=== PATIENT | female | born 2005 | race Caucasian/White ===

== ENCOUNTER 2024-12-11 15:08 | Emergency (ER) | payer OTHER, SELFPAY ==
--- NOTE | ~2024-12-11 | XR_ITS ---
XR hip RT min 2V 12/11/2024 15:37 INDICATION: Right hip injury PROCEDURE: 2 views right hip COMPARISON: No prior studies for comparison. FINDINGS: Fracture, dislocation or subluxation is not identified. The soft tissues appear within norm al limits. No foreign bodies are identified. IMPRESSION: 1: NO ACUTE BONE OR JOINT ABNORMALITY IDENTIFIED. Reviewed, dictated and finalized at location A.
--- NOTE | ~2024-12-11 | XR_ITS ---
XR forearm RT 2V 12/11/2024 15:37 INDICATION: Right arm pain PROCEDURE: 2 views right forearm COMPARISON: No prior studies for comparison. FINDINGS: Fracture, dislocation or subluxation is not identified. The soft tissues appear within norm al limits. No foreign bodies are identified. IMPRESSION: 1: NO ACUTE BONE OR JOINT ABNORMALITY IDENTIFIED. Reviewed, dictated and finalized at location A.
--- NOTE | ~2024-12-11 | XR_ITS ---
XR humerus RT 12/11/2024 15:37 INDICATION: Right arm pain after injury PROCEDURE: 2 views right humerus COMPARISON: No prior studies for comparison. FINDINGS: Fracture, dislocation or subluxation is not identified. The soft tissues appear within norm al limits. No foreign bodies are identified. IMPRESSION: 1: NO ACUTE BONE OR JOINT ABNORMALITY IDENTIFIED. Reviewed, dictated and finalized at location A.
--- NOTE | ~2024-12-11 | XR_ITS ---
XR forearm LT 2V 12/11/2024 15:37 INDICATION: Left arm pain PROCEDURE: 2 views left forearm COMPARISON: No prior studies for comparison. FINDINGS: Fracture, dislocation or subluxation is not identified. The soft tissues appear within norm al limits. No foreign bodies are identified. IMPRESSION: 1: NO ACUTE BONE OR JOINT ABNORMALITY IDENTIFIED. Reviewed, dictated and finalized at location A.
[2024-12-11 15:12] VITALS: BP 148/104; PULSE 85; RESP 18; TEMP 36.3; O2SAT 99
--- NOTE | 2024-12-11 15:20 | ED.ANIMALBIT ---
HPI - Animal Bite General Chief Complaint: Animal Bite <Priscilla Jarrell APRN - Last Filed: 12/11/24 19:04> Stated Complaint: Dog bite while at work <Priscilla Jarrell APRN - Last Filed: 12/11/24 19:04> Time Seen by Provider: 12/11/24 15:15 <Priscilla Jarrell BLOW MOLDING MACHINE TENDER - Last Filed: 12/11/24 19:04> Focused HPI: Patient is a 19-year-old female who presents to the ER following a dog bite by a pit bull. She reports she was at work and carrying blankets in for the dog when he attacked her. Patient endorses dog bites to her left forearm, right forearm, right upper arm, and right hip. She is unsure when she last had her tetanus shot so she is in agreement to get it today. Patient reports the dog is up-to-date on his rabies vaccine, but was not vaccinated for anything else. Patient endorses significant pain, swelling and bruising to the different areas she was bit. She reports she has a history of mitral valve prolapse and mitral valve dysfunction. GENERAL: Well-appearing, well-nourished, and in no acute distress. HEAD: Normocephalic, atraumatic. CHEST: Clear to auscultation. ?No respiratory distress. HEART: Regular rate and rhythm.? NEURO: ?Alert and oriented x3. Patient screened in triage and initial orders placed.? ?Additional care and disposition to be based upon?diagnostic testing and treatment. <Priscilla Jarrell APRN - Last Filed: 12/11/24 19:04> History of Present Illness HPI narrative: agree with MSE above, remainder of note separate by myself (albaro) <Channing Isidro III, DO - Last Filed: 12/15/24 15:30> Related Data Allergies/Adverse Reactions: Allergies Allergy/AdvReac Type Severity Reaction Status Date / Time No Known Allergies Allergy Verified 12/11/24 16:00 <Priscilla Jarrell APRN - Last Filed: 12/11/24 19:04> Course Vital Signs Vital signs: Vital Signs Temperature 97.4 F L 12/11/24 15:12 Pulse Rate 85 12/11/24 15:12 Respiratory Rate 18 12/11/24 15:12 Blood Pressure 148/104 H 12/11/24 15:12 Pulse Oximetry 99 12/11/24 15:12 Oxygen Delivery Room Air 12/11/24 15:12 Temperature 97.4 F L 12/11/24 15:12 Pulse Rate 85 12/11/24 15:12 Respiratory Rate 18 12/11/24 15:12 Blood Pressure 148/104 H 12/11/24 15:12 Pulse Oximetry 99 12/11/24 15:12 Oxygen Delivery Room Air 12/11/24 15:12 <Priscilla Jarrell, BLOW MOLDING MACHINE TENDER - Last Filed: 12/11/24 19:04> Vital Signs Temperature 97.4 F L 12/11/24 15:12 Pulse Rate 85 12/11/24 15:12 Respiratory Rate 18 12/11/24 15:12 Blood Pressure 148/104 H 12/11/24 15:12 Pulse Oximetry 99 12/11/24 15:12 Oxygen Delivery Room Air 12/11/24 15:12 Temperature 97.4 F L 12/11/24 15:12 Pulse Rate 85 12/11/24 15:12 Respiratory Rate 18 12/11/24 15:12 Blood Pressure 148/104 H 12/11/24 15:12 Pulse Oximetry 99 12/11/24 15:12 Oxygen Delivery Room Air 12/11/24 15:12 <Channing Isidro III, DO - Last Filed: 12/15/24 15:30> Discharge Plan Discharge Clinical Impression: Dog bite <Priscilla Jarrell BLOW MOLDING MACHINE TENDER - Last Filed: 12/11/24 19:04> Patient Disposition: Home <Priscilla Jarrell BLOW MOLDING MACHINE TENDER - Last Filed: 12/11/24 19:04> Condition: Stable <Priscilla Jarrell BLOW MOLDING MACHINE TENDER - Last Filed: 12/11/24 19:04> Instructions: Antibiotic Form, Animal Bite (ED) <Priscilla Jarrell APRN - Last Filed: 12/11/24 19:04> Patient Language: Czech <Priscilla Jarrell BLOW MOLDING MACHINE TENDER - Last Filed: 12/11/24 19:04> Prescriptions: New amoxicillin-pot clavulanate 875-125 mg tablet 1 tablet PO Q12H Qty: 20 0RF <Priscilla Jarrell APRN - Last Filed: 12/11/24 19:04> Follow-up/Referrals: PHYSICIAN NOT ON STAFF,NONSTAFF [Non-Staff] - <Priscilla Jarrell APRN - Last Filed: 12/11/24 19:04>
[2024-12-11] MEDS: KETOROLAC (*BKC) 60 MG/2 ML VIAL IM (15:50)
[2024-12-11] MEDS: TETANUS,DIPHTHERIA,AC PERTUSSIS ADULT (0.5 ML) BOOSTRIX IM (15:51)
--- NOTE | 2024-12-11 16:03 | ED.ANIMALBIT ---
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 Dog's shots utd. suffered bite to forearm and hip and scratches to upper arm. unsure of last tetanus. Related Data Allergies Allergy/AdvReac Type Severity Reaction Status Date / Time No Known Allergies Allergy Verified 12/11/24 16:00 Review of Systems Review of Systems: All systems reviewed & are unremarkable except as noted in HPI and below Exam Const: General: healthy appearing and no acute distress Nutritional Appearance: well nourished Orientation/consciousness: patient oriented x3 Limitations: no limitations Resp: Effort & Inspection: normal respiratory effort Auscultation: clear to auscultation bilaterally Cardio: Rate: regular rate Rhythm: regular rhythm GI: GI Palp: Yes Soft to palpation and No Tenderness to palpation present (GI) Skin: Wounds: wounds noted Neuro: General: patient oriented x3, moves all extremities and no focal motor deficits Extrem: Other: dog bite puncture wounds to right forearm and right hip with surrounding bruises, scratches to right humerus Course Vital Signs Vital signs: Vital Signs Temperature 97.4 F L 12/11/24 15:12 Pulse Rate 85 12/11/24 15:12 Respiratory Rate 18 12/11/24 15:12 Blood Pressure 148/104 H 12/11/24 15:12 Pulse Oximetry 99 12/11/24 15:12 Oxygen Delivery Room Air 12/11/24 15:12 Temperature 97.4 F L 12/11/24 15:12 Pulse Rate 85 12/11/24 15:12 Respiratory Rate 18 12/11/24 15:12 Blood Pressure 148/104 H 12/11/24 15:12 Pulse Oximetry 99 12/11/24 15:12 Oxygen Delivery Room Air 12/11/24 15:12 MDM - Animal Bite MDM Narrative Medical decision making narrative: Pt has dog bite, x rays of forearm and humerus and hip neg. tetanus given. home on augmentin. Discharge Plan Discharge Clinical Impression: Dog bite Patient Disposition: Home Condition: Stable Instructions: Antibiotic Form, Animal Bite (ED) Patient Language: Slovenian Prescriptions: New amoxicillin-pot clavulanate 875-125 mg tablet 1 tablet PO Q12H Qty: 20 0RF Follow-up/Referrals: PHYSICIAN NOT ON STAFF,NONSTAFF [Non-Staff] -
--- OUTSIDE RECORDS SUMMARY | 2024-12-12 14:56 | XMS_ITS | Clinical Summary ---
Author Organization [facility] Address [address] [place] [address] Care Team Providers Care Ice Cream Machine Operator Name Role Phone Lamine Marie MD Primary Care Provider [phone] Allergies Active Allergy Reactions Criticality Noted Date Comments Diltiazem Swelling 01/31/2023 Medications FLUoxetine (PROZAC) 40 MG capsuleIndication s:Anxiety TAKE 1 CAPSULE BY MOUTH DAILY 90 capsule 3 4 Active methylphenidate CR (CONCERTA) 36 MG tabletIndications :Attention deficit hyperactivity disorder (ADHD), predominantly inattentive type Take 2 tablets (72 mg total) by mouth every morning. #sixty tablets 60 tablet 5 Active methylphenidate CR (CONCERTA) 36 MG tabletIndications :Attention deficit hyperactivity disorder (ADHD), predominantly inattentive type Take 2 tablets (72 mg total) by mouth every morning. 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 Encounters Date Type Department Care Team Description 09/21/2024 3:40 PM EXCEL VBA DEVELOPER Office Visit [facility] Family & Internal Medicine [address] [phone] Lamine Marie MD Anxiety (6 mo f/u) 09/21/2024 Travel from Last 3 Months Immunizations Immunization Administration Dates Next Due Dtap (Acel-Immune) 11/21/2009 Dtp (Generic) 11/21/2009, 6,02/14/2005,11/2004,2004 Fluzone 6 Months+ Quad (0.5 mL Prefilled Syringe) 07/02/2018 HPV GARDASIL 9-VALENT 08/23/2016,04/17/2016,01/2016 Hepatitis A (Havrix [address]) 09/10/2014, 014 Hepatitis B (Generic Peds) 02/14/2005 Hepatitis B Pediatric 2004,2004,07/14 Hib (Generic) 05/22/2005,2004,2004 Influenza 3 yrs + Preservati ve Free (Fluzone) 07/20/2016,06/03/2015 Influenza 3 yrs + with Prese rvative (Fluzone) 2014 Influenza Adult (Generic) 05/13/2019 Ipol (Polio Vaccine) 2004,2004 MENINGOCOCCAL A C Y&W-135 oligosaccharide (MENVEO) 02/15/2016 MMR 11/21/2009 MMR (Generic) 08/21/2005 Menactra 02/15/2016 Meningcoccal Group B (Trumen ba)(aka Meningitis) 02/16/2021 Meningococcal (Menactra) 08/22/2021 Pneumococcal (Prevnar 7) 08/21/2005,01/2005,2004,10/10 Polio Ipv (Generic) 11/21/2009,02/14/2005 Tdap (Adacel) 02/15/2016 Tdap (Generic) 11/16/2015 Varicella (Generic) 11/21/2009,11/20/2005 Family History * Patient is adopted Medical History Relation Comments No Known Problems Brother No Known Problems Father No Known Problems Maternal Aunt No Known Problems Mother No Known Problems Sister Relation Status Comments Brother Father Maternal Aunt Mother Sister Social History Tobacco Use Types Packs/Day Years Used Date Smoking Tobacco: Never Smokeless Tobacco: Never Tobacco Cessation:Counseling Given: Not Answered Alcohol Use Standard Drinks/Week Comments Yes 0 (1 standard drink = 0.6 oz pur e alcohol) OCC. AUDIT-C Answer Date Recorded Q1: How often do you have a drink containing alcohol? Never 11/09/2023 Q2: How many drinks containi ng alcohol do you have on a typical day when you are drinking? Patient does not drink Q3: How often do you have si x or more drinks on one occasion? Never 11/09/2023 PHQ-2 Answer Date Recorded Patient Health Questionnaire-2 Score 0 09/21/2024 Comments No Sex and Gender Information Value Date Recorded Sex Assigned at Female 12/13/2022 2:22 PM CDT Legal Sex Female 7:29 PM CDT Gender Identity Female 12/13/2022 2:22 PM CDT Sexual Orientation Straight 12/13/2022 2 :22 PM CDT Last Filed Vital Signs Vital Sign Reading Time Taken Comments Blood Pressure 132/68 09/21/2024 3:44 PM EXCEL VBA DEVELOPER Pulse 101 09/21/2024 3:44 PM EXCEL VBA DEVELOPER Temperature 36.5 C (97.7 F) 09/21/2024 3:44 PM EXCEL VBA DEVELOPER Respiratory Rate 16 09/21/2024 3:44 PM EXCEL VBA DEVELOPER Oxygen Saturation 98% 09/21/2024 3:44 PM EXCEL VBA DEVELOPER Inhaled Oxygen Concentration - - Weight 65.8 kg (145 lb) 09/21/2024 3:44 PM EXCEL VBA DEVELOPER Height 165.1 cm (5' 5 ) 09/21/2024 3:44 PM EXCEL VBA DEVELOPER Body Mass Index 24.13 09/21/2024 3:44 PM EXCEL VBA DEVELOPER Plan of Treatment Upcoming Encounters Date Type Department Care Team (Late st Contact Info) Description 03/11/2025 1:00 PM CDT Office Visit [facility] [address], [place] [id number] Fuad Jimenez MD [facility] [address], [place] [id number] 03/22/2025 9:40 AM CDT Office Visit [facility] Family & Internal Medicine [address] [phone] Lamine Marie MD [address] [place] [address] Health Maintenance Due Date Last Done Comments Meningococcal B Vaccine (2 of 2 - Trumenba SCDM 2-dose series) 08/19/2021 02/16/2021 Annual Physical 02/16/2022 02/16/2021 Hepatitis C 2022 COVID-19 Vaccine ( season) 2025 04/13/2021, 03/23/2021 Postponed from 04/12/2024 (Patient Refused) Pneumococcal Vaccine: Pediatrics (0 to 5 Years) and At-Risk Patients (6 to 49 Years) (1 of 2 - PCV) 07/16/2025 08/21/2005, 02/14/2005, 2004, Additional history exists Postponed from 2023 (Patient Refused) DTaP, Tdap and Td Vaccines (8 - Td or Tdap) 02/14/2026 02/15/2016, 11/16/2015, 11/21/2009, Additional history exists Hepatitis B Vaccines Completed 02/14/2005, 2004, 2004, Additional history exists HPV Vaccines Completed 08/23/2016, 01/2016, 02/15/2016 Meningococcal Vaccine Completed 08/22/2021 , 02/15/2016, 02/15/2016 PHQ-2 (Physician [place]) Completed 09/21/2024 RSV Immunizations Under 20 Months Aged Out No longer eligible based on patient's age to complete this topic Insurance R UMR Advance Directives * Full Code (Latest Code Status on File) Date Activated Date Inactivated Comments 02/13/2023 3:46 PM 02/13/2023 8:16 PM Care Teams Ice Cream Machine Operator Relationship Specialty Start Date End Date Lamine Marie MD [address] [place] [id number] PCP - General INTERNAL MEDICINE 02/16/21
--- OUTSIDE RECORDS SUMMARY | 2024-12-12 14:56 | XMS_ITS | Data Portability ---
Author Organization [facility] , [facility] Address [address] [place] [address] Care Team Providers Care Steel Checker Name Role Phone [facility] Probate Lawyer Assessment Encounter Date Assessment Date Assessment LastModified by Organization Details LastModified Time 07/04/2022 07/04/2022 Pt is a16 yo F who comes in with AUB while on Depo. Pt got her 3rd shot last week. POC Conventional Management: -Ibuprofen 800 mg PO Q 8 hours x 5 days Acute Bleeding Management: Pill Taper - Pill Taper: monophasic PRINCESS with 30-35 mcg of Estrogen Take one tablet TID x 3 days or until bleeding subsides, then one tablet BID x 3-5 days, then one tablet daily until all active pills have been taken. Skip inactive pills [email or web address] Not available 07/04/2022 16:10:48 01/22/2023 01/22/2023 AUB with Depo: -- Start with: TID 800 mg Motrin x 5 days- pt has tried this and it did not work. -- 2-3 cycles of Monophasic PRINCESS; 35 estrogen- pt tried this and it did not work. -- Discussed with Dr. Hall. He recommended Doxycycline 100 mg 1 tablet BID x 7 days; Estradiol 1 mg daily until bleeding stops. [email or web address] Not available 01/28/2023 13:54:11 Plan of Treatment Reminders Order Date Submit Date Provider Last Modified By Organization Details Last Modified Time Details Appointments None recorded. Lab None recorded. Referral None recorded. Procedures None recorded. Surgeries None recorded. Imaging None recorded. Medication Orders Sprintec (28) 0.25 mg-0.035 mg tablet 2021 023 [facility] [address], [place], [address], 17:07:49 ibuprofen 600 mg tablet 2021 023 ALEXI [facility] [address], [place], [address], 17:06:49 Patient TargetsNo targets recorded. Patient Instructions Encounter Date Encounter Id Patient Instructions Last Modified By Organization Details Last Modified Time 07/04/2022 [id number] dysmenorrhea education [email or web address] Not available 07/04/2022 15:36:22 painful menstrua l cramps in teens: care instructions bnotzke Not available 07/04/2022 15:36:22 combination barbara h control pills for teens: care instructions [email or web address] Not available 07/04/2022 15:36:22 learning about control: condoms [email or web address] Not available 07/04/2022 15:36:22 Reason for Referral None Reported. Procedures Surgical History Date Name Laterality Status Provider Name and Address Organization Details Recorded Time procedure on cardiac septum completed [facility] IV 01/22/2023 17:09:39 extraction of wisdom tooth [facility]23 17:09:47 Imaging Results None recorded. Procedure Notes None recorded. Medical Equipment None Reported. Allergies No known drug allergies Medications Name Sig Start Date Stop Date Status Note LastModified by Organization Details LastModified Time doxycycline hyclate 100 mg capsule TAKE 1 CAPSULE BY MOUTH TWICE DAILY active Not Available Not Available No t Available azithromyci n 250 mg tablet TAKE 2 TABLETS BY MOUTH ON DAY 1, AND THEN TAKE 1 TABLET BY MOUTH ONCE A DAY ON DAY 2 THROUGH DAY 5 01/22 completed Not Available Not Available Not Available diltiazem CD 180 mg capsule,ext ended release 24 hr TAKE 2 CAPSULES BY MOUTH ONCE DAILY active Not Available Not Available No t Available hydrocodone 5 mg-acetamin ophen 325 mg tablet TAKE ONE TABLET BY MOUTH EVERY 4 HOURS NEEDED 01/22 completed Not Available Not Available Not Available methylpheni date ER 54 mg tablet,exte nded release 24 hr TAKE 1 TABLET BY MOUTH ONCE DAILY WITH 18 MG TO EQUAL 72 MG 01/22 completed Not Available Not Available Not Available diltiazem CD 360 mg capsule,ext ended release 24 hr TAKE 1 CAPSULE BY MOUTH ONCE DAILY active Not Available Not Available No t Available sulfamethox azole 800 mg-trimetho prim 160 mg tablet TAKE 1 TABLET BY MOUTH TWICE DAILY 01/22 completed Not Available Not Available Not Available estradiol 1 mg tablet TAKE 1 TABLET BY MOUTH ONCE DAILY DIRECTED active Not Available Not Available No t Available triamcinolo ne acetonide 55 mcg nasal spray aerosol USE 1 SPRAY(S) IN EACH NOSTRIL ONCE DAILY FOR 30 DAYS 01/22 completed Not Available Not Available Not Available metoprolol succinate ER 25 mg tablet,exte nded release 24 hr TAKE 1 TABLET BY MOUTH IN THE EVENING 01/22 completed Not Available Not Available Not Available azelastine 137 mcg (0.1 %) nasal spray USE 2 SPRAYS IN EACH NOSTRIL TWICE A DAY FOR 30 DAYS active Not Available Not Available No t Available ibuprofen 600 mg tablet Take 1 tablet 3 times a day by oral route as needed. 01/22 completed Not Available Not Available Not Available cefdinir 300 mg capsule TAKE 1 CAPSULE BY MOUTH TWICE DAILY FOR 21 DAYS active Not Available Not Available No t Available methylpheni date ER 18 mg tablet,exte nded release 24 hr TAKE 1 TABLET BY MOUTH IN THE MORNING WITH 54 MG DOSE TO EQUAL 72 MG 01/22 completed Not Available Not Available Not Available fluoxetine 20 mg capsule active Not Available Not Available Not Available fluticasone propionate 50 mcg/actuati on nasal spray,suspe nsion USE 2 SPRAY(S) IN EACH NOSTRIL TWICE DAILY 01/22 completed Not Available Not Available Not Available medroxyprog esterone 150 mg/mL intramuscul ar suspension INJECT 1 ML (150 MG TOTAL) INTO THE MUSCLE EVERY 3 MONTHS active Not Available Not Available No t Available methylpheni date ER 36 mg tablet,exte nded release 24 hr TAKE 2 TABLETS BY MOUTH IN THE MORNING active Not Available Not Available No t Available amoxicillin 875 mg-potassiu m clavulanate 125 mg tablet 01/22 completed Not Available Not Available Not Available Sprintec (28) 0.25 mg-0.035 mg tablet Take 1 tablet every day by oral route. 01/22 completed Not Available Not Available Not Available Microgestin 08/31 (21) 1 mg-20 mcg tablet DAY 1 & 2 TAKE 3 TABLETS BY MOUTH, DAY 3 & 4 TAKE 2 TABLETS, AND THEN DAY 5 AND 6 TAKE 1 TABLET 01/22 completed Not Available Not Available Not Available metoprolol tartrate 25 mg tablet TAKE 1 TABLET BY MOUTH TWICE DAILY NEEDED FOR PALPITATI ONS/RAPID HEART RATE 01/22 completed Not Available Not Available Not Available fluoxetine 01/22 completed Not Available Not Available Not Available Corlanor 5 mg tablet TAKE 1 TABLET BY MOUTH TWICE DAILY WITH MEALS active Not Available Not Available No t Available methylpheni date 01/22 completed Not Available Not Available Not Available Vitals Date Recorded Body height Body mass index (BMI) [Percentile] Per age and sex Body mass index (BMI) Body weight Systolic blood pressure Diastolic blood pressure Provider Name and Address Organization Details Last Updated DateTime 2 165.1 cm 40 % 20.5 kg/m2 90478.8 6 g 108 mm[Hg] 78 mm[Hg] Gabriella Jeffriesmansoor [employer] [facility] 2 15:16:03 Date Recorded Body height Body mass index (BMI) [Percentile] Per age and sex Body mass index (BMI) Body weight Body temperature Systolic blood pressure Diastolic blood pressure Provider Name and Address Organization Details Last Updated DateTime 3 165.1 cm 66 % 22.9 kg/m2 84927.3 1 g 98.2 [degF] 104 mm[Hg] 62 mm[Hg] Stephanie Gutierrez [employer] [facility] 3 17:05:38 Social History Question Answer Notes LastModified by Organizat ion Details LastModified Time Tobacco Smoking Status Never Smoker Gabriella Jeffriesflacodebbie arun [employer] [facility] 07/04/2022 15:10:32 What Is Your Level Of Alcohol Consumption? None Information not available 07/04/2022 Are You Blind Or Do You Have Difficulty Seeing? No Information not available 01/22/2023 Are You Deaf Or Do You Have Serious Difficulty Hearing? No Information not available 01/22/2023 What Type Of Diet Are You Following? REGULAR Information not available 07/04/2022 How Many Children Do You Have? -1 Information not available 01/22/2023 What Is Your Relationship Status? Single Information not available 07/04/2022 Are You Sexually Active? Yes Information not available 07/04/2022 Do You Use Any Illicit Or Recreational Drugs? No Information not available 07/04/2022 Do You Or Have You Ever Used Any Other Forms Of Tobacco Or Nicotine? No Information not available 07/04/2022 Sex: Unknown Functional Status Question Answer Note LastModified by Organization D etails LastModified Time What is your exercise level? Moderate Information not available 07/04/2022 Mental Status None recorded. Family History Relationship Description Onset Age of this Age Resolved Age Notes LastModified by Organization Details LastModified Time Father No current problems or disability [email or web address] Not available 07/04 15:10:01 Mother No current problems or disability [email or web address] Not available 07/04 15:10:01 Medical History Condition Response Other Cancer N High Blood Pressure N Colon Cancer N Cytomegalovirus N Hyperthyroidism N Breast Cancer N Herpes (HSV) N MRSA N Blood Transfusion N Lung Cancer N Hypothyroidism N Depression Y Incontinence N Panic Attacks N Neurological Disorder N Deep Vein Thrombosis N Anxiety Disorder N Autoimmune disease N Arthritis N Tuberculosis/Positive PPD N Shingles N Polycystic Ovarian Syndrome N Cervical Cancer N Hematuria N Chlamydia N Varicosities N Stroke N Crohn's Disease N Seasonal allergies N Alzheimer's/Dementia N COPD/Emphysema N HPV/Genital Warts N Endometriosis N IBS (Irritable Bowel Syndrome) N History of Abnormal Pap N High Cholesterol N Liver Disease N Fibromyalgia N Kidney Infection N Ulcer N Kidney Disease N HIV N Gallbladder disease N Von Willebrand disease N Sickle Cell Disease/Trait N ADD/ADHD Y Eating Disorder N Diabetes Mellitus (non-insulin dependent ) N Anemia N Ovarian Problems N Multiple Sclerosis N Gonorrhea N Frequent Urinary Tract infections N Osteopenia N Headaches/migraines N GERD (reflux) N Ovarian Cancer N Diabetes (insulin dependent) N Seizures/Epilepsy N Fibroids N Asthma N Heart Attack N Endometrial Cancer N Lupus N Rubella N Blood Clotting Disorder N Bipolar Disorder N Diabetes Mellitus (during ) N Ulcerative Colitis N Hepatitis N Heart Disease N Pulmonary Embolism N RPR N Chicken Pox N Osteoporosis N Gynecological History Statement/Question Response Date of Last Colonoscopy Flow Light Date of last HPV Date of LMP Most Recent Bone Density HPV Vaccine N Date of Last Pap Smear Most Recent Mammogram Current Control Method Depo-Hoisting Pile Driving Engineer a Age at Menarche 10 Obstetrics History GPAL:G 0 P 0 0 0 0 Past Encounters Encounter ID Performer Location Encounter Start Date Encounter Closed Date Diagnosis/Indication Diagnosis SNOMED-CT Code Diagnosis ICD10 Code Diagnosis Note [id number] VINCE JAG [facility] [address] [place] [address] 07/04/2022 15:03:02 07/04/2022 16:55:48 Dysmenorrhea 159045650 N94.6 Initial pr escription of oral contraception 463836060 Z30.011 Contracept jackie counseling : Discussed options including OCPs, NuvaRing, Nexplanon, hormonal and copper IUDs. Discussed risks, efficacy, noncontrac eptive benefits, and side effects of each option, including risk of VTE with hormonal contracept ion and uterine perforatio n, expulsion, infection with IUD. [id number] VINCE JAG [facility] [address] [place] [address] 01/22/2023 16:28:24 01/23/2023 12:35:57 Contraception care 333301669 Z30.09 Depot cont raceptive - problem 025876717 Z30.49 Health Concerns Section Related Observation LastModified by Organization Detai ls LastModified Time None Recorded Concern Status LastModified by Organization Details LastModified Time None Recorded Advance Directives Directive None Recorded Payers Encounter Date Sequence Insurance Name Policy Number Policy Elliott Covered Member ID Elliott Member ID Guarantor Name 07/04/2022 1 [employer] (EPO) Elma Magallon [id number] Elma Magallon 01/22/2023 1 [employer] (EPO) Elma Magallon [id number] Elmajj Magallon Notes Date Note Type Note Provider Name and Address Organization Details Recorded Time 07/04/20 22 text/htm l Irregular PeriodsReported bypatient.Onset/Timin-12 cycles Quality:light; moderate Duration:15-30 days/month Severity:mild pt reports bleeding since getting her first depo shot 6 months ago, just got3rd shot last week. [facility] [address] [facility], [place], [address], [facility] [employer] [facility] 07/04/2022 16:11:15 01/23/20 23 text/htm l Contraception visitReported bypatient.Type of ContraceptionIntramuscular contraceptive injection;Problems with current contraceptive device Menstrual cycle:spotting due to depo Elma is here today discuss switching her depo to nexplanon VINCE RM, [facility] [address] [facility], [place], [address], [facility] [employer] [facility] 01/28/2023 13:54:22 OBGyn Episode No OBEpisode recorded.
--- OUTSIDE RECORDS SUMMARY | 2024-12-12 14:56 | XMS_ITS | Encounter Summary ---
Author Organization [facility] Address [facility] [place] [address] Care Team Providers Care Fruit Or Nut Grower Name Role Phone Lamine Marie MD Primary Care Provider [phone] Encounter Details Date Type Department Care Team (Late st Contact Info) Description 01/24/2023 Br[place] Message Enc [facility], [address] [id number] [facility], [facility] Provider MRI Social History Tobacco Use Types Packs/Day Years Used Date Smoking Tobacco: Never Smokeless Tobacco: Never Comments:vaped in the past, not current Alcohol Use Standard Drinks/Week Comments Never 0 (1 standard drink = 0.6 oz pur e alcohol) AUDIT-C Answer Date Recorded Q1: How often do you have a drink containing alc ohol? Never 08/31/2020 Average Number of Drinks Not on file 021 Frequency of Binge Drinking Not on file 08/13 PHQ-2 Answer Date Recorded PHQ-2 Score - If the patient scores above 3, please move on to questions 3-9 0 11/14/2021 Comments No Sex and Gender Information Value Date Recorded Sex Assigned at Female 12/13/2022 2:22 PM CDT Legal Sex Female 7:29 PM CDT Gender Identity Female 12/13/2022 2:22 PM CDT Sexual Orientation Straight 12/13/2022 2: 22 PM CDT COVID-19 Exposure Response Date Recorded In the last 10 days, have yo u been in contact with someone who was confirmed or suspected to have Coronavirus/COVID-19? No / Unsure 01/22/2023 9:06 AM CDT documented as of this encounter Plan of Treatment Upcoming Encounters Date Type Department Care Team (Late st Contact Info) Description 03/11/2025 1:00 PM CDT Office Visit [facility], [address] [place] [address] Fuad Jimenez MD Three [facility]. [address] [place] [address] 03/22/2025 9:40 AM CDT Office Visit [facility] Family & Internal Medicine [facility] [address] [place] [address] Lamine Marie MD [address] [place] [address] documented as of this encounter Visit Diagnoses Not on filedocumented in this encounter Care Teams Fruit Or Nut Grower Relationship Specialty Start Date End Date Lamine Marie MD [address] [place] [address] [phone] PCP - General INTERNAL MEDICINE 02/16/21 documented as of this encounter
--- OUTSIDE RECORDS SUMMARY | 2024-12-12 14:56 | XMS_ITS | Encounter Summary ---
Author Organization [facility] Address [facility] [place] [address] Care Team Providers Care Offset Press Assistant Name Role Phone Lamine Marie MD Primary Care Provider Encounter Details Date Type Department Care Team (Late st Contact Info) Description 06/11/2024 U Catch [employer] Message Enc [place] [facility] THREE [facility], [facility] [address] [place], [place] [id number] Fuad Jimenez MD Three [facility]. [facility] [address] [place] [address] Cardiac Clearance for Foot Surgery Social History Tobacco Use Types Packs/Day Years Used Date Smoking Tobacco: Never Smokeless Tobacco: Never Alcohol Use Standard Drinks/Week Comments Yes 0 (1 standard drink = 0.6 oz pur e alcohol) 2-4 drinks per month AUDIT-C Answer Date Recorded Q1: How often do you have a drink containing alcohol? Never 11/09/2023 Q2: How many drinks containi ng alcohol do you have on a typical day when you are drinking? Patient does not drink Q3: How often do you have si x or more drinks on one occasion? Never 11/09/2023 PHQ-2 Answer Date Recorded Patient Health Questionnaire-2 Score 0 03/18/2024 Comments No Sex and Gender Information Value Date Recorded Sex Assigned at Female 12/13/2022 2:22 PM CDT Legal Sex Female 7:29 PM CDT Gender Identity Female 12/13/2022 2:22 PM CDT Sexual Orientation Straight 12/13/2022 2: 22 PM CDT documented as of this encounter Progress Notes * Eneida Frank - 06/11/2024 12:20 PM CDT I faxed clearance letter to Dr Alina Valencia at [phone] * MARA Mariano - 06/11/2024 12:08 PM CDT Low risk for planned procedure. She is not on any blood thinners. documented in this encounter Plan of Treatment Upcoming Encounters Date Type Department Care Team (Late st Contact Info) Description 03/11/2025 1:00 PM CDT Office Visit [facility], [facility] [address] [place] [address] Fuad Jimenez MD Three [facility]. [facility] [address] [place] [address] 03/22/2025 9:40 AM CDT Office Visit [facility] Family & Internal Medicine [place] [place] [address] Lamine Marie MD [address] [place] [address] documented as of this encounter Visit Diagnoses Not on filedocumented in this encounter Care Teams Offset Press Assistant Relationship Specialty Start Date End Date Lamine Marie MD [address] [place] [address] PCP - General INTERNAL MEDICINE 02/16/21 documented as of this encounter
--- OUTSIDE RECORDS SUMMARY | 2024-12-12 14:56 | XMS_ITS | Encounter Summary ---
Author Organization [facility] Address [facility] [place] [address] Care Team Providers Care Physician Relations Specialist Name Role Phone Lamine Marie MD Primary Care Provider [phone] Encounter Details Date Type Department Care Team (Late st Contact Info) Description 07/17/[address] [facility] Day [facility] [address] [place] [address] [place], [facility] Provider Upcoming Surgery Social History Tobacco Use Types Packs/Day [...] PM CDT documented as of this encounter Plan of Treatment Upcoming Encounters Date Type Department Care Team (Late st Contact Info) Description 03/11/2025 1:00 PM CDT Office Visit [facility] [address] [place] [address] Fuad Jimenez MD Three [facility]. [facility] [address] [place] [address] 03/22/2025 9:40 AM CDT Office Visit [facility] Family & Internal Medicine [facility] [address] [place] [address] Lamine Marie MD [address] [place] [address] documented as of this encounter Visit Diagnoses Not on filedocumented in this encounter Care Teams Physician Relations Specialist Relationship Specialty Start Date End Date Lamine Marie MD [address] [place] [address] PCP - General INTERNAL MEDICINE 02/16/21 documented as of this encounter
--- OUTSIDE RECORDS SUMMARY | 2024-12-12 14:56 | XMS_ITS | Encounter Summary ---
Author Organization [facility] Address [address] [place] [address] Care Team Providers Care International Trade Compliance Manager Name Role Phone Lamine Marie MD Primary Care Provider [phone] Encounter Details Date Type Department Care Team (Late Contact Info) Description 09/27/2023 MyChart Message Enc [facility] Family & Internal Medicine [address] [address] Lamine Marie MD [address] [place] [phone] Methylphenidate Social History Tobacco Use Types Packs/Day Years [...] on file 08/13 PHQ-2 Answer Date Recorded Patient Health Questionnaire-2 Score 0 03/05/2023 Comments No Sex and Gender Information Value [...] CDT Office Visit [facility] THREE [facility], [address] [place] [address] Fuad Jimenez MD Three [facility]. [address] [place] [address] 03/22/2025 9:40 AM CDT Office Visit [facility] Family & Internal Medicine [facility] [address] [place] [address] Lamine Marie MD [address] [place] [address] documented as of this encounter Visit Diagnoses Not on filedocumented in this encounter Care Teams International Trade Compliance Manager Relationship Specialty Start Date End Date Lamine Marie MD [address] [place] [address] PCP - General INTERNAL MEDICINE 02/16/21 documented as of this encounter
== END 2024-12-11 16:19 | disposition home or self-care (01) ==
PROVIDERS: Emergency Provider Emergency Medicine; PCP Internal Medicine
DX: S51.851A Open bite of right forearm, initial encounter (principal); S71.051A Open bite, right hip, initial encounter; Z23 Encounter for immunization; W54.0XXA Bitten by dog, initial encounter
CPT/HCPCS: 73060; 73090; 73502; 90471; 90715; 96372; 99283; J1885